=== PATIENT | female | born 1995 | race Caucasian/White ===

== ENCOUNTER 2022-11-23 21:28 | Emergency (ER) | payer OTHER ==
[~2022-11-23] VITALS: Ht 170.2 cm; Wt 79.4 kg
[2022-11-24] MEDS ORDERED: ACET325C7 PO (00:41)
[2022-11-24] MEDS ORDERED: IBUP-1953 PO (00:41)
[2022-11-24] MEDS ORDERED: ONDA4TAB11 PO (00:41)
[2022-11-24] MEDS ORDERED: ONDANSETRON 4 MG TAB.RAPDIS ONE (00:50)
[2022-11-24] MEDS ORDERED: ACETAMINOPHEN ES 500 MG TABLET ONE (00:50)
--- NOTE | 2022-11-24 00:57 | NUR ---
Patient discharged to home in stable condition. Written and verbal after care instructions given. Patient verbalizes understanding of instruction.
[2022-11-24] MEDS ORDERED: ACETAMINOPHEN ES 500 MG TABLET PO ONE (01:00)
[2022-11-24] MEDS ORDERED: ONDANSETRON 4 MG TAB.RAPDIS SL ONE (01:00)
[2022-11-24 03:49] VITALS: BP 121/93
== END 2022-11-24 01:00 | disposition home or self-care (01) ==
LOC: ER 21:35
DX: B34.9 Viral infection, unspecified (principal); Z20.822 Contact with and (suspected) exposure to COVID-19; Z86.16 Personal history of COVID-19
CPT/HCPCS: 99283; 87804 ×2; U0003; Q0162; C9803